=== PATIENT | female | born 1990 | race Caucasian/White ===

== ENCOUNTER 2016-12-11 21:20 | Emergency (ER) | payer OTHER ==
[~2016-12-11] VITALS: Ht 157.5 cm; Wt 58.1 kg
[~2016-12-11 21:20] MED LIST: PRENTAB9 PO
[2016-12-11 21:32] VITALS: BP 133/94
--- NOTE | 2016-12-12 08:14 | REP ---
Left ankle four views : There is no fracture or dislocation. Mineralization and joint spaces are normal. There are no calcifications or foreign bodies. Impression: Negative left ankle . Signed by Kt Penn MD 12/12/2016 08:06 A
== END 2016-12-11 22:35 | disposition home or self-care (01) ==
LOC: M ED 22:07
DX: S93.402A Sprain of unspecified ligament of left ankle, initial encounter (principal); X50.9XXA Other and unspecified overexertion or strenuous movements or postures, initial encounter; Y92.019 Unspecified place in single-family (private) house as the place of occurrence of the external cause; Y93.01 Activity, walking, marching and hiking; Y99.8 Other external cause status; Z87.442 Personal history of urinary calculi; Z79.3 Long term (current) use of hormonal contraceptives; F41.9 Anxiety disorder, unspecified